=== PATIENT | male | born 1985 | race African-American/Black ===

== ENCOUNTER 2020-11-14 06:00 | Emergency (ER) | payer SELFPAY ==
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
[2020-11-14 06:06] VITALS: BP 172/84; PULSE 76; RESP 16; TEMP 36.7; O2SAT 100
--- NOTE | 2020-11-14 07:25 | PC.NURSE ---
Awaiting provider jorgito. Pt states he possibly pulled a muscle on Thursday, denies known trauma or heavy lifting, pain had come and gone but more intense this am. Pt pointing to L lateral chest/abd, pain non-radiating, denies N/V/D/urinary symptoms, states Motrin this am has not helped
--- NOTE | 2020-11-14 07:44 | ED.BACK ---
HPI - Back Pain/Injury General Chief Complaint: Back Pain/Injury Stated Complaint: left lower back pain Time Seen by Provider: 11/14/20 07:42 Source: patient and RN notes reviewed Limitations: no limitations History of Present Illness HPI Narrative: 55 years old -[place] male presents with pain left lower ribs started Thursday. Patient lifted a heavy box of 65 pounds the day before. Pain worse with laughing, sneezing, coughing, certain position. Patient denies any fever, chills, nausea, vomiting, chest pain, shortness of breath. Patient went to work today and was asked to left 35 pounds boxes. Related Data Home Medications Medication Instructions Recorded Confirmed albuterol 11/14/20 Allergies Allergy/AdvReac Type Severity Reaction Status Date / Time No Known Allergies Allergy Unverified 11/14/20 06:12 Review of Systems Review of Systems: Narrative: CONSTITUTIONAL: Denies fever, chills, or sweats. EYES: Denies visual changes, redness, or discharge. ENT: Denies rhinorrhea, congestion, sore throat, or otalgia. CARDIOVASCULAR: Denies chest pain, palpitations, or edema. RESPIRATORY: Denies cough or dyspnea. GASTROINTESTINAL: Denies abdominal pain, nausea, vomiting, or diarrhea. GENITOURINARY: Denies dysuria or hematuria. SKIN: Denies rash or itching. MUSCULOSKELETAL: Denies back pain, joint pain, or myalgia. NEUROLOGIC: Denies headache, numbness, or weakness. PSYCHIATRIC: Denies anxiety or depression. Exam Narrative: Exam Narrative: General appearance: Well-developed, well-nourished Skin: Normal color Head: Normocephalic, nontraumatic Eyes: Clear conjunctiva ENT: Oropharynx normal, ears normal, nose normal Neck: Supple, nontender Chest and respiratory: Airway patent, no respiratory distress, no accessory muscle use mild tenderness left lower ribs laterally. No bruises, no swelling, no rash Heart: Regular rate/rhythm Abdomen: Soft, nontender, no organomegaly, quiet bowel sounds Vascular: Normal peripheral pulses, normal capillary refill. Musculoskeletal: Normal range of motion, nontender back Neurologic: Alert and oriented ?3, [employer] is normal as tested, no gross motor deficit Course Course Emergency Course: Stable Vital Signs Vital signs: Vital Signs Temperature 36.7 C 06/23/21 06:06 Pulse Rate 76 11/14/20 06:06 Respiratory Rate 16 11/14/20 06:06 Blood Pressure 172/84 H 11/14/20 06:06 Pulse Oximetry 100 11/14/20 06:06 Temperature 36.7 C 11/14/20 06:06 Pulse Rate 76 11/14/20 06:06 Respiratory Rate 16 11/14/20 06:06 Blood Pressure 172/84 H 11/14/20 06:06 Pulse Oximetry 100 11/14/20 06:06 MDM - Back Pain/Injury MDM Narrative Medical decision making narrative: Pulled muscle is my concern. Chest x-ray, left ribs x-ray ordered. Ibuprofen 800 mg, Flexeril 10 mg ordered Differential Diagnosis Differential diagnosis: Likely thoracic back pain Imaging Data Radiologist's impression: Impressions Ribs w/Chest X-Ray 11/14/20 07:59 IMPRESSION: 1. No rib fracture or acute cardiopulmonary disease. Critical Care Time Critical Care Time Critical Care Time: No Discharge Plan Discharge Clinical Impression: Muscle strain Patient Disposition: Home, Self-Care Condition: Stable Instructions: Antibiotic Form, Musculoskeletal Pain (ED) Additional Instructions: Return if symptoms are worsening , call your family physician for appointment, take Tylenol as as needed for aches and pain, continue home medications. Prescriptions: New naproxen 500 mg tablet 500 mg PO BID PRN (Reason: pain) Qty: 14 RF: 0 cyclobenzaprine 10 mg tablet 10 mg PO TID PRN (Reason: m
[2020-11-14] MEDS: CYCLOBENZAPRINE HCL 10 MG TABLET PO (07:56)
[2020-11-14] MEDS: IBUPROFEN 400 MG TABLET 800 MG PO (07:56)
[2020-11-14 08:21] VITALS: BP 133/80; PULSE 57; RESP 16; O2SAT 100
== END 2020-11-14 08:24 | disposition home or self-care (01) ==
PROVIDERS: Emergency Provider Emergency Medicine
DX: S29.011A Strain of muscle and tendon of front wall of thorax, initial encounter (principal); X50.0XXA Overexertion from strenuous movement or load, initial encounter
CPT/HCPCS: 71046; 71100; 99283; A9270